=== PATIENT | male | born 1985 | race Caucasian/White ===

== ENCOUNTER 2019-10-11 12:44 | Outpatient (CLI) | payer OTHER ==
--- NOTE | 2019-10-11 13:19 | RAD ---
RIGHT ELBOW RADIOGRAPHS FOUR VIEWS: 10/11/2019 PROVIDED CLINICAL HISTORY: Chronic pain without injury. FINDINGS: There is no evidence for fracture or other acute osseous abnormality. Alignment appears anatomic. Bharti nt spaces appear preserved. There is no evidence for significant elbow joint capsular distention. Ent hesophyte formation is noted arising from the olecranon with a somewhat fragmented appearance to the enthesophyte, nonspecific. IMPRESSION: Somewhat fragmented olecranon enthesophyte. Correlate with site of pain. POS: OFF
== END 2019-10-11 12:45 | disposition home or self-care (01) ==
LOC: MADRAD 12:44
PROVIDERS: ATTEND Orthopaedic Surgery
DX: M19.021 Primary osteoarthritis, right elbow (principal); M25.721 Osteophyte, right elbow